=== PATIENT | male | born 1955 | race Hispanic/Latino ===

== ENCOUNTER 2019-04-10 07:57 | Day surgery (SDC) | payer MEDICARE ==
[~2019-04-10] VITALS: Ht 172.7 cm; Wt 108.0 kg
[~2019-04-10 07:57] MED LIST: SODIUM CHLORIDE 0.9% 1000ML 1,000 ML IV ONE
[2019-04-10 08:32] VITALS: BP 154/74
[2019-04-10] MEDS ORDERED: DILT120T PO (08:55)
[2019-04-10] MEDS ORDERED: PROPOFOL 10 MG/ML 20ML VIAL IV ONE (09:52)
[2019-04-10 09:56] VITALS: BP 112/60
[2019-04-10 10:02] VITALS: BP 116/80
[2019-04-10 10:07] VITALS: BP 120/54
[2019-04-10 10:14] VITALS: BP 116/57
[2019-04-10 10:15] VITALS: BP 125/78
== END 2019-04-10 10:30 | disposition home or self-care (01) ==
LOC: ENDO 07:57 → DAH 07:57 → ENDO 10:30
PROVIDERS: ATTEND Internal Medicine Gastroenterology
DX: K29.50 Unspecified chronic gastritis without bleeding (principal); R11.0 Nausea; N20.0 Calculus of kidney; I10 Essential (primary) hypertension; Z98.890 Other specified postprocedural states; Z98.1 Arthrodesis status; D64.9 Anemia, unspecified
CPT/HCPCS: 43239; 88305; 88342; A4606; J2704; J7030